=== PATIENT | male | born 1990 | race Caucasian/White ===

== ENCOUNTER → 2017-11-30 | Outpatient (CLI) | payer BC | END | disposition home or self-care (01) | LOC: KCIC 11:43 | DX: M41.86 Other forms of scoliosis, lumbar region (principal) | CPT/HCPCS: 72100 ==

== ENCOUNTER → 2018-01-14 | Outpatient (CLI) | payer BC ==
--- NOTE | 2018-01-14 13:45 | KCIC ---
MRI Lumbar Spine without contrast History: Low back pain, pain into both legs the last few months, pulling injury Technique: Multiplanar, multi sequential noncontrast MR imaging was performed of the lumbar spine. Contrast: None Comparison: February 26, 2012 Findings: Lumbar vertebral body stature is preserved. AP alignment is similar. There is again mild degenerative disc disease L4-5. There is straightening of the lumbar spine. There is no significant marrow edema. L3-L4: Spinal canal and neural foramina are adequate. L4-L5: There is more prominent bulge/broad protrusion eccentric to the right lateral recess, on the order of 0.9 cm CC by 1.3 cm transverse by 0.5 cm AP. There is increased indentation upon the ventral thecal sac greater in the far right lateral recess, moderate right lateral recess stenosis and contact descending right L5 nerve root. Neural foramina are adequate. L5-S1: Spinal canal and neural foramina are adequate. There is mild facet hypertrophic change Impression: 1. There is more prominent bulge/broad protrusion eccentric to the right lateral recess at L4-5 with increased moderate right lateral recess stenosis and contact descending right L5 nerve root. There is again mild degenerative disc disease at L4-5. Electronically signed by: Randy Moser MD (01/14/2018 1:42 PM) [facility]
== END | disposition home or self-care (01) ==
LOC: KCIC MRI 12:18
PROVIDERS: ATTEND Nurse Practitioner Family
DX: M51.36 Other intervertebral disc degeneration, lumbar region (principal); M51.26 Other intervertebral disc displacement, lumbar region; M48.061 Spinal stenosis, lumbar region without neurogenic claudication
CPT/HCPCS: 72148

== ENCOUNTER → 2018-03-03 | Outpatient (CLI) | payer BC ==
[~2018-03-03] MED LIST: IOHEXOL 180 MG/ML 10 ML VIAL. ONE; LIDOCAINE 1% PF 2 ML VIAL. ONE; [UNRECOGNIZED DRUG - REMARK]; methylPREDNISolone ACETATE 40 MG/ML VIAL. ONE; methylPREDNISolone ACETATE 80 MG/ML VIAL. ONE
--- NOTE | 2018-03-04 02:42 | PAIN ---
DATE OF SERVICE: 03/03/2018 CHIEF COMPLAINT: Low back and right lower extremity pain. HISTORY OF PRESENT ILLNESS: This is a 28-year-old male who presents with history of pain in the low back and right lower extremity, mostly in the posterior gluteus, posterior thigh, radiating to posterior calf and back of the knee as well as the lateral thigh and calf into the ankle and foot and into all the toes, especially the great toe. The patient reports this happened about 11/11/2017, not developed with any specific injury or action that he is aware of, but has had multiple insults to his back over time, mostly with activities he does at his place of employment. The patient reports now the pain is constant, sharp, stabbing, throbbing, shooting, tingling with radiating pain as described, burning, cramping and aching in the low back and right leg as well. The patient has had some physical therapy, which was helpful at the time when he was doing it, but has not been long lasting. Also, doing exercises on his own, which is helpful, but only very mildly. The patient reports seems to be getting worse with standing, walking, changing positions, waking him from sleep about 2-3 times a night, especially when he lies on his right side. It does not affect his bowel or bladder control, but does affect his ability to walk. He is not using any assistive devices to ambulate, however. The patient has just tried muscle relaxer, also an anti-inflammatory which neither one helped and it is about a month ago and did not decrease the pain significantly. I did have a steroid pack tapered dose, which did decrease the pain significantly by about 70%. The patient did have an MRI scan of the lumbar spine. This was dated on 01/14/2018 showing more prominent bulge/broad protrusion, eccentric to the right lateral recess at L4-L5 with increased moderate right lateral recess stenosis and contacting descending right L5 nerve root with mild degenerative disk disease at L4-L5 as compared to a film on 02/26/2012. The patient rates his disability rating from 0-10, 10 being the worst, is a 9 with family home responsibilities, 10 with recreation and occupation, 8 with social activities, 0 with sexual behavior, 8 with self-care and 7 with life support activities. The patient described no loss of motor function in the lower extremities, but significant fatigability with right leg, especially with standing and walking, bending, stooping activities or even just standing for more than about 10 minutes. No significant pain or radiation into the left lower extremity, but across the low back on the left side at times. PAST MEDICAL HISTORY: Significant for only right ACL repair, otherwise has been in very good health. No major medical conditions that he is aware of. CURRENT MEDICATIONS: Include only [id number] anti-inflammatories, recently completed a steroid Dosepak. FAMILY HISTORY: Significant for no major medical problems or conditions he is aware of. SOCIAL HISTORY: The patient does not smoke, does not drink alcohol, not using illegal, illicit or recreational drugs. He is single, lives locally in [place], [place]. Works for [employer]. REVIEW OF SYSTEMS: The patient's review of systems is positive for those items mentioned in history of present illness. All systems reviewed and otherwise negative. It is complete, full and well documented on the patient's chart. PHYSICAL EXAMINATION: VITAL SIGNS: Today, the patient's blood pressure is 131/66, pulse 76, respirations 16, temperature 98.2 degrees Fahrenheit, height is 6 feet 3 inches, weight is 164 pounds. GENERAL: The patient is awake, alert, oriented, appropriate, very pleasant demeanor. HEENT: Shows normocephalic, atraumatic. Extraocular movements are intact and symmetrical. Oral cavity: Mucous membranes moist and pink. Dentition is intact. NECK: Shows anterior throat supple without palpable lymphadenopathy noted. Swallow reflex is symmetrical. CHEST: Shows normal on inspection. Breath sounds are clear to auscultation bilaterally. HEART: Shows S1, S2 clear. No murmurs auscultated. ABDOMEN: Soft, nontender, nondistended. No palpable organomegaly is noted. No rebound or guarding demonstrated. BACK: Shows spine grossly in the midline. Normal appearing thoracic kyphosis and lumbar lordotic curvature. Lumbar paraspinous muscle shows symmetrical on inspection. On palpation shows some cpyf-bi-[id number] tenderness with palpation, but only diffusely in the low lumbar distribution without radiation. No tenderness over the spinous processes, sacrum or sacroiliac regions. The patient shows good rotational motion of lumbar spine, both laterally as well as extension and flexion without difficulty, greater than 10 degrees right and left as well as extension greater than 10 degrees, forward flexion 45 degrees without difficulty. LOWER EXTREMITIES: Show deep tendon reflexes at 2+ in the patellar and 1+ tendo calcaneus tendons. Motor exam is strong with 5/5 dorsiflexion, extension, quadriceps and hamstring flexion and are equal. Peripheral pulses are 1+ posterior tibia. No peripheral edema is noted. Straight leg raise noted to be positive on the right at about 45 degrees, which decreased with knee flexion, left side is negative. Gaenslen's and Salvatore's maneuvers are negative for reproduction of any pain bilaterally as well. The patient is able to stand, stand on his toes without difficulty or loss of balance, walks with a slight shuffling gait, does appear to favor his right lower extremity to a moderate extent with ambulation, but not using any assistive devices such as canes or walkers to ambulate. SKIN: Shows warm and dry, good turgor. No edema. No sores, rashes or bruising. IMPRESSION: This is a 28-year-old male with: 1. Four-month history of low back, right lower extremity pain in radicular pattern. 2. MRI scan of lumbar spine as noted. 3. Previous right ACL repair. PLAN: Options were discussed with the patient including conservative medical management, physical therapy, interventional techniques. He would like to pursue interventional techniques as he has done some physical therapy and is doing the exercises without significant improvement overall long-term. We discussed the lumbar epidural steroid injection using description as well as anatomical models to describe the procedure. Risks were then discussed including, but not limited to bleeding, infection, possibility of epidural hematoma and subsequent neurological compromise, dural puncture, headaches, spinal cord and/or nerve damage, side effects of steroid medication and poor results regarding pain control. The patient understands and wished to proceed. The patient will return to the clinic in approximately 2 weeks for followup, was counseled on return appointment, activity level and side effects to be aware of. DIAGNOSES: Lumbar radiculopathy with lumbar degenerative disk disease with lumbar spinal stenosis and lumbar herniated disk. PROCEDURES: Lumbar epidural steroid injection, translaminar approach at L4-L5 level using C-arm fluoroscopic guidance under sterile prep and drape using local anesthetic. MEDICATION INJECTED: A total of 120 mg Depo-Medrol plus 10 mL of preservative-free normal saline and 2 mL of Isovue for contrast. CONDITION AT DISCHARGE: Stable. The patient tolerated procedure well, had no complications. NAKIA STEVENS MD DR: CAT/guy JOB#: [id number] / [id number] ARI White APRN
== END | disposition home or self-care (01) ==
LOC: PNCL 11:10
PROVIDERS: ATTEND Anesthesiology
DX: M51.16 Intervertebral disc disorders with radiculopathy, lumbar region (principal); M48.061 Spinal stenosis, lumbar region without neurogenic claudication; Z98.890 Other specified postprocedural states; Z79.899 Other long term (current) drug therapy
CPT/HCPCS: 62323; J1030; J1040; Q9965

== ENCOUNTER → 2018-03-22 | Outpatient (CLI) | payer BC ==
--- NOTE | 2018-03-23 01:32 | PAIN ---
DATE OF SERVICE: 03/22/2018 PROGRESS NOTE FOR PAIN CLINIC DIAGNOSES: Lumbar radiculopathy with lumbar degenerative disk disease, lumbar spinal stenosis and lumbar herniated disk. HISTORY OF PRESENT ILLNESS: The patient is a 28-year-old male who returns for followup status post lumbar epidural steroid injection x 1. The patient reports about 60% improvement overall and the pain in the low back and right leg is doing much better, still some cramping with the pain is now intermittent and not in the entire leg and the hip and knee and into the ankle and foot on the right side only, mostly in posterior lateral aspect of the thigh, medial lower leg and into the foot. The patient reports it is cramping, stabbing, aching, sharp, tight at times, constant at times as well but much better with increasing his activity with greater ease and comfort, walking much better, doing household activities, getting out of a car easier, traveling easier, sleeping better at night. The patient reports it does not awaken him from sleep. The patient reports his pain is 8 on a scale of 10 at its worst, 6 on average, 3 at its least and is a 6 today. The patient reports no new motor or sensory deficits and no bowel or bladder incontinence or other complaints. PHYSICAL EXAMINATION: VITAL SIGNS: The patient's blood pressure is 118/77, pulse 76, respirations 20, temperature 98.0 degrees Fahrenheit, height is 6 feet 3 inches and weight is 161 pounds. GENERAL: The patient is awake, alert, oriented, appropriate and very pleasant demeanor. HEENT: Head shows normocephalic and atraumatic. Extraocular movements are intact and symmetrical. Oral cavity: Mucous membranes moist and pink. Dentition is intact. NECK: Shows anterior throat supple without palpable lymphadenopathy noted. Swallow reflex symmetrical. CHEST: Shows normal with inspection. Breath sounds clear to auscultation bilaterally. HEART: Shows S1 and S2 clear. No murmurs auscultated. ABDOMEN: Soft, nontender and nondistended. No palpable organomegaly is noted. No rebound or guarding demonstrated. BACK: Shows spine grossly in the midline. Normal-appearing thoracic kyphosis and lumbar lordotic curvature. Lumbar paraspinous musculature shows symmetrical on inspection, on palpation shows some moderate tenderness bilaterally but only diffusely without radiation. EXTREMITIES: Lower extremities show deep tendon reflexes 2+ in the patellar, 1+ tendo-calcaneus tendons. Motor exam is strong with 5/5 dorsiflexion and extension bilaterally. Peripheral pulses are 1+ posterior tibia. No peripheral edema is noted bilaterally. Options were discussed with the patient. The patient's old chart was reviewed as well as his current medication regimen updated. Current review of systems updated today as well. We will proceed with second in the series of lumbar epidural steroid injection today with fluoroscopic guidance. Risks were again discussed including, but not limited to bleeding, infection, possibility of epidural hematoma, subsequent neurological compromise, dural puncture, headaches, spinal cord and/or nerve damage, side effects of steroid medication and poor results regarding pain control. The patient understands and wished to proceed. The patient will return to the clinic in approximately 2 weeks for followup, was counseled as to return appointment and activity level and side effects to be aware of. DIAGNOSES: Lumbar radiculopathy with lumbar degenerative disk disease and lumbar spinal stenosis and lumbar herniated disk. PROCEDURE: Lumbar epidural steroid injection, translaminar approach, L4-L5 level using C-arm fluoroscopic guidance under sterile prep and drape using local anesthetic. MEDICATION INJECTED: A total of 120 mg Depo-Medrol plus 10 mL of preservative-free normal saline and 2 mL of Isovue for contrast. CONDITION AT DISCHARGE: Stable. The patient tolerated the procedure well and had no complications. NAKIA STEVENS MD DR: CAT/guy JOB#: [id number] / [id number]
== END | disposition home or self-care (01) ==
LOC: PNCL 12:49
PROVIDERS: ATTEND Anesthesiology
DX: M51.16 Intervertebral disc disorders with radiculopathy, lumbar region (principal); M48.061 Spinal stenosis, lumbar region without neurogenic claudication; Z98.890 Other specified postprocedural states
CPT/HCPCS: 62323; J1030; J1040; Q9965

== ENCOUNTER → 2018-06-07 | Outpatient (CLI) | payer BC ==
[~2018-06-07] MED LIST changes: -LIDOCAINE 1% PF 2 ML VIAL. ONE
--- NOTE | 2018-06-07 11:29 | PAIN ---
DATE OF SERVICE: 06/07/2018 PROGRESS NOTE FOR PAIN CLINIC DIAGNOSES: Lumbar radiculopathy with lumbar degenerative disk disease, lumbar spinal stenosis and lumbar herniated disk. HISTORY OF PRESENT ILLNESS: The patient is a 28-year-old male who returns for followup status post lumbar epidural steroid injection x 2, most recently 03/22/2018 and 03/03/2018 prior to that. The patient reports doing well about 70% improvement after the injections, but pain returning now in the low back and right lower extremity, which he reports as 10 on a scale 10 at its worst, 7 on average, 3 at its least and is a 3 today. The patient reports it is in the low back, right posterior gluteus, posterolateral thigh, lateral anterior thigh, medial thigh, medial lower leg and calf on the right side, worse was walking, standing, change positions, awakens him sleep occasionally every night. The patient reports it as aching and sharp, tight, shooting, cramping, stabbing, coming more constant, more severe and more radiating and more unbearable with weightbearing on the right side. The patient has had a history of a L4-L5 disk herniation with the bones and brought protrusion eccentric to the right in the lateral recess at L4-L5. The patient reports no new motor or sensory deficits. No new bowel or bladder incontinence or other complaints. OBJECTIVE: VITAL SIGNS: His blood pressure 133/80, pulse 72, respirations 16, temperature 98.3 degrees Fahrenheit, height 6 feet 3 inches and weight is 168 pounds. GENERAL: The patient is awake, alert, oriented and appropriate, very pleasant demeanor. HEENT: Shows normocephalic, atraumatic. Extraocular movements are intact and symmetrical. Oral cavity, mucous membranes are moist and pink. Dentition is intact. NECK: Shows anterior throat supple, without palpable lymphadenopathy noted. Swallow reflex is symmetrical. CHEST: Shows normal on inspection. Breath sounds are clear to auscultation bilaterally. HEART: Shows S1, S2 clear. No murmurs auscultated. ABDOMEN: Soft, nontender, nondistended. No palpable organomegaly is noted. No rebound or guarding demonstrated. BACK: Shows spine grossly in the midline. Normal-appearing thoracic kyphosis, lumbar lordotic curvature. Lumbar paraspinal muscle shows symmetrical on inspection, on palpation shows some moderate tenderness diffusely, but only diffusely in the middle and lower lumbar paraspinous muscular without radiation. The patient's spinous processes show no tenderness over the sacrum or sacroiliac regions. The patient has good rotational motion of the lumbar spine, both laterally as well as extension and flexion without difficulty. EXTREMITIES: Lower extremities show deep tendon reflexes at 2+ in the patellar, 1+ tendo calcaneus tendons are equal. Motor exam is strong with 5/5 dorsiflexion and extension, quadriceps and hamstrings flexion. Peripheral pulses are 1+ posterior tibial. No peripheral edema noted bilaterally. PLAN: Options were discussed with the patient. The patient's old chart was reviewed as his current medication regimen updated. Current review of systems updated today as well. We will proceed with a third in a series of lumbar epidural steroid injection today with fluoroscopic guidance. Risks were again discussed including, but not limited to bleeding, infection, possibility of epidural hematoma and subsequent neurologic compromise, dural puncture, headaches, spinal cord and/or nerve damage, side effects of steroid medication, poor results regarding pain control. The patient understands and wished to proceed. The patient will return to the clinic in approximately 2 weeks for followup, was counseled on return appointment, activity level and side effects to be aware of. DIAGNOSES: Lumbar radiculopathy with lumbar degenerative disk disease, lumbar spinal stenosis and lumbar herniated disk. PROCEDURE: Lumbar epidural steroid injection, translaminar approach L4-L5 level using C-arm fluoroscopic guidance under sterile prep and drape using local anesthetic. MEDICATION INJECTED: A total of 120 mg Depo-Medrol plus 10 mL of preservative-free normal saline and 2 mL of Isovue for contrast. CONDITION AT DISCHARGE: Stable. The patient tolerated the procedure well, had no complications. NAKIA STEVENS MD DR: CAT/guy JOB#: [id number] / [id number]
== END | disposition home or self-care (01) ==
LOC: PNCL 09:32
PROVIDERS: ATTEND Anesthesiology
DX: M51.16 Intervertebral disc disorders with radiculopathy, lumbar region (principal); M48.061 Spinal stenosis, lumbar region without neurogenic claudication; Z98.890 Other specified postprocedural states
CPT/HCPCS: 62323; J1030; J1040; Q9965